=== PATIENT | female | born 2000 | race Caucasian/White ===

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

== ENCOUNTER 2024-07-15 13:52 | Emergency (ER) | payer BC ==
[2024-07-15 14:44] VITALS: BP 119/73; PULSE 53
[2024-07-15] MEDS: Diphtheria,Pertussis(Acell),Tetanus Vaccine 0.5 ML Syringe IM ONE (15:55)
[2024-07-15] MEDS: Acetaminophen 325 MG Tab PO ONE (16:21)
== END 2024-07-15 16:48 | disposition home or self-care (01) ==
LOC: MW.ED 13:52
DX: S61.206A Unspecified open wound of right little finger without damage to nail, initial encounter (principal); Z23 Encounter for immunization; J45.909 Unspecified asthma, uncomplicated; Z75.8 Other problems related to medical facilities and other health care; Z79.899 Other long term (current) drug therapy; W26.0XXA Contact with knife, initial encounter
CPT/HCPCS: 12001; 90471; 90715; 99283; A9270